=== PATIENT | female | born 1995 | race African-American/Black ===

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

== ENCOUNTER 2017-01-29 09:31 | Inpatient (IN) | payer OTHER ==
[2017-01-29] VITALS (28 sets, daily range): BP systolic 96–146; BP diastolic 48–87
[~2017-01-29] VITALS: Ht 170.2 cm; Wt 66.0 kg
[~2017-01-29 09:31] MED LIST: PREN1TAB11 PO
[2017-01-29] MEDS ORDERED: LR 1,000 ML IV SCH (10:58)
[2017-01-29] MEDS ORDERED: LACTATED RINGER'S 1000 ML IV STA (10:58)
--- NOTE | 2017-01-29 11:52 | HPE ---
DATE OF ADMISSION: 01/29/2017 HISTORY: 21-year-old, 1, para 0, last menstrual period (LMP) 04/25/2016, estimated date of confinement (EDC) 01/30/2017, at 39 and 6, with history of contractions, no loss of fluid or vaginal bleeding. RISK FACTORS: She is a teen and she is Rh negative. LABS: O negative, HIV negative, hepatitis negative, RPR negative, rubella immune. Varicella immune. Urine negative. Gonorrhea and chlamydia negative. 1-hour glucose 117. GBS is negative. On examination, she is distressed with the contractions, 4 minutes apart, moderate intensity, 30 seconds. Pelvic examination: 100% effaced, posterior, 2-3, soft, bulging membranes, -3 station, OT. Category 1 strip. Blood pressure 119/79, respirations 18, pulse 97, temperature is 98.6. Urine 1.015, pH 6, 2+ ketones, 3+ blood. Plan of management is to recheck her now, restart an IV to rid of her ketones and get her back into positive balance. The rest the examination unremarkable. Normal normocephalic, atraumatic. Neck full range of motion. Pupils equal and reactive to light. Chest is clear bilaterally to bases. No wheezes or rhonchi. Distal pulses symmetric. No evidence of DVT, pulmonary embolism (PE), or superficial phlebitis. No costovertebral angle (CVA) tenderness. Uterus, four quadrant bowel sounds, it is appropriate symphysis fundus height and between contractions it relaxes. No rashes, lesions or pruritus. No arthralgia, myalgia. No complaints of cough, wheezes, shortness of breath or dyspnea on exertion. No chest pain. No bleeding. Neuro complete. No incontinency, urgency or frequency. No nausea, vomiting, diarrhea or constipation. No diabetic issues. No [employer]ILRO[employer], past medical or surgical history. Family history is noncontributory. She does not smoke, drink, abuse drugs. There is no domestic violence. In summary, we have a 21-year-old in early labor with dehydration for rehydration and reassessment in one hours' time.
[2017-01-29 12:44] LABS: MEAN CORPUSCULAR HEMOGLOBIN 30.2 pg (27.0-33.0); MEAN CORPUSCULAR HGB CONC 34.6 g/dl (32.0-36.5); MEAN CORPUSCULAR VOLUME 87.2 fl (80.0-96.0); PLATELET COUNT, AUTOMATED 254 10^3/uL (150-450); RED CELL DISTRIBUTION WIDTH 12.6 % (11.5-14.5); WHITE BLOOD COUNT 19.4 10^3/uL (4.0-10.0)
[2017-01-29] MEDS ORDERED: FENTANYL 2MCG/ML ROPIVACAINE 0.2% IN 0.9% NACL 200ML IVBAG As Ordered ONE (12:49)
[2017-01-29] MEDS ORDERED: REFRIGERATOR IV KEYS XX PRN (14:00)
[2017-01-29] MEDS ORDERED: EPIDURAL COMMENT XX SCH (14:00)
[2017-01-29] MEDS ORDERED: ePHEDrine SULFATE 25 MG/5 ML(5MG/ML) SYRINGE IV PRN (14:00)
[2017-01-29] MEDS ORDERED: ONDANSETRON 4MG/2ML VIAL (J2405) IV PRN (14:00)
[2017-01-29] MEDS ORDERED: FENTANYL/ROPIVACAINE/NACL BAG 200 ML EPIDURAL SCH (14:00)
[2017-01-29] MEDS ORDERED: LACTATED RINGER'S 1000 ML IV PRN (14:00)
[2017-01-29] MEDS ORDERED: EPIDURAL/PCA KEYS XX PRN (14:00)
[2017-01-29] MEDS ORDERED: NALOXONE INJ 0.4 MG/1 ML VIAL (J2310) IV PRN (14:00)
[2017-01-29] MEDS ORDERED: diphenhydrAMINE INJ 50MG/ML VIAL (J1200) IV PRN (14:00)
[2017-01-29] MEDS ORDERED: OXYTOCIN 30 UNITS IN 0.9% NaCl 500ML IV BAG (J2590) As Ordered ONE (16:11)
[2017-01-29 18:25] LABS: CORD GAS ABE A -2.1; CORD GAS O2 SAT A 57.4 %; CORD GAS PCO2 A 40.7 mmHg; CORD GAS PH A 7.37 UNITS; CORD GAS PO2 A 23.9 mmHg; CORD GAS SBC A 21.7 MEQ/L; CORD GAS TCO2 A 24.2 MEQ/L
[2017-01-29 18:27] LABS: CORD GAS ABE V -3.2; CORD GAS HCO3 V 19.8 MEQ/L; CORD GAS O2 SAT V 68.1 %; CORD GAS PCO2 V 30.5 mmHg; CORD GAS PH V 7.43 UNITS; CORD GAS PO2 V 44.1 mmHg; CORD GAS SBC V 21.1 MEQ/L; CORD GAS TCO2 V 20.7 MEQ/L
[2017-01-29] MEDS ORDERED: OXYTOCIN DRIP 30 UNITS in APPROPRIATE DILUENT 1 EA IV SCH (18:32)
[2017-01-29] MEDS: OXYTOCIN DRIP 30 UNITS in APPROPRIATE DILUENT 1 EA IV SCH ×2 (18:45→22:45)
[2017-01-29] MEDS ORDERED: ACETAMINOPHEN 500 MG TAB PO PRN (18:45)
[2017-01-29] MEDS ORDERED: ANUSOL HC CREAM 30GM TOP PRN (18:45)
[2017-01-29] MEDS ORDERED: METHYLERGONOVINE MALEATE 0.2 MG TAB PO PRN (18:45)
[2017-01-29] MEDS ORDERED: RHOGAM 300 MCG (1500 IU) INJ (J2790) IM SCH (18:45)
[2017-01-29] MEDS ORDERED: MEASLES,MUMPS,RUBELLA VACCINE INJ (MMR-II) (90707) SC SCH (18:45)
[2017-01-29] MEDS ORDERED: DOCUSATE SODIUM 100 MG CAP PO PRN (18:45)
[2017-01-29] MEDS ORDERED: DIBUCAINE 1% OINTMENT 30GM TOP PRN (18:45)
[2017-01-29] MEDS ORDERED: MOM 30ML SUSPENSION UDC PO PRN (18:45)
[2017-01-29] MEDS ORDERED: OXYTOCIN INJ 10 UNITS/ML VIAL (J2590) IV ONE (18:45)
--- NOTE | 2017-01-29 18:48 | IPN ---
DATE: 01/29/2017 This lady requested circumcision of her male . After discussing risks and benefits of circumcision, the medical and nonmedical indications, penile block and aftercare and complications, expressed understanding penile block, aftercare, complications, signed and witnessed consent form. We await the medical clearance by the bufferer.
[2017-01-29] MEDS ORDERED: OXYTOCIN INJ 10 UNITS/ML VIAL (J2590) As Ordered ONE (19:32)
--- NOTE | 2017-01-29 20:50 | DN ---
DATE: 01/29/2017 This lady, a 3, was admitted in spontaneous labor, required an epidural, had an AROM draining clear liquor at full dilatation over intact perineum, delivered a live male weighing 3650 grams, 8 pounds 1 ounce, scores of 8 and 9 at 1 and 5 minutes, respectively, terminal meconium was noted. She had a small first-degree blood vessel tear which was oversewn with a 2-0 J339. Weight was 3650 grams. The patient had arterial and venous pH performed. The arterial pH was 7.37, base excess -2.1, venous pH 7.43, base excess -3.2. On examination after repair of the blood vessel on the right side of the vagina, the perineum appeared to be intact. Sphincter was tight. Hemorrhoids are noted. Anteroposterior lateral moore were intact. Uterus contracted well down on Pitocin. The patient and baby tolerating procedure well.
[2017-01-29] MEDS: IBUPROFEN 800 MG TAB PO PRN (22:47)
[2017-01-30] MEDS: OXYTOCIN DRIP 30 UNITS in APPROPRIATE DILUENT 1 EA IV SCH ×6 (02:45→21:47)
[2017-01-30 06:00] VITALS: BP 98/56
[2017-01-30 07:12] LABS: MEAN CORPUSCULAR HEMOGLOBIN 30.4 pg (27.0-33.0); MEAN CORPUSCULAR HGB CONC 34.6 g/dl (32.0-36.5); MEAN CORPUSCULAR VOLUME 87.9 fl (80.0-96.0); PLATELET COUNT, AUTOMATED 168 10^3/uL (150-450); RED CELL DISTRIBUTION WIDTH 12.5 % (11.5-14.5); WHITE BLOOD COUNT 18.5 10^3/uL (4.0-10.0)
--- NOTE | 2017-01-30 08:54 | IPN ---
DATE: 01/30/2017 This lady came in labor spontaneously at 39 weeks of gestation and had a spontaneous vaginal delivery live male weighing 8 pounds 1 ounce, 3650 grams, of 8 and 9 at one and five minutes respectfully, had meconium Liqua post delivery with terminal meconium. Arterial pH 7.37, base excess -2.1, venous pH 7.4, base excess -3.2. We discussed phlebitis, cystitis, mastitis, endometritis and cellulitis, diet, exercise pain management, perineal, breast and wound care. The patient is planning on control discussion at the 6-week checkup. The rest examination is unremarkable. She is normocephalic, atraumatic. Neck: Full range of motions. Pupils equally reactive to light. Distal pulses symmetric. No evidence of deep venous thrombosis (DVT), pulmonary embolus (PE) or superficial phlebitis. Chest is clear bilaterally bases. No wheezes or rhonchi. No CVA tenderness. Uterus 2 below. Lochia is moderate. Perineum is healing. No rashes, lesions or pruritus. No arthralgia or myalgia. No complaints of cough, wheezes, shortness of breath or dyspnea on exertion. No chest pain. No bleeding. Neuro complete. No incontinence, urgency or frequency. No nausea, vomiting, diarrhea or constipation. No diabetic issues. Past medical history unremarkable. Family history noncontributory. She does not smoke, drink abuse drugs. She is to a soldier. There is no domestic violence. Her admitting hemoglobin was 11.8, hematocrit 34.1 and platelets 254. Her day #1 hemoglobin 8.8, hematocrit 25.4, platelets are 168. Her vital signs today her blood pressure is 98/56, respirations 18, pulse 75, temperature is 98.6. She is not symptomatic with her low hemoglobin or low blood pressure. The patient is planning on discharge for tomorrow.
[2017-01-30] MEDS ORDERED: PRENATAL VITAMINS CHEWABLE TABLET PO SCH (09:00)
[2017-01-30] MEDS: IBUPROFEN 800 MG TAB PO PRN ×3 (09:18→21:48)
[2017-01-30 18:13] VITALS: BP 90/55
[2017-01-31] MEDS: OXYTOCIN DRIP 30 UNITS in APPROPRIATE DILUENT 1 EA IV SCH (02:45)
[2017-01-31 06:00] VITALS: BP 98/54
[2017-01-31] MEDS: IBUPROFEN 800 MG TAB PO PRN (07:53)
[2017-01-31] MEDS ORDERED: ACET50TA PO (12:34)
[2017-01-31] MEDS ORDERED: COLA100C5 PO (12:34)
[2017-01-31] MEDS ORDERED: IBUP-1114 PO (12:34)
== END 2017-01-31 13:15 | disposition home or self-care (01) | DRG 775 ==
LOC: M LDO 09:31 → M LDI 12:34 → M OBS 20:58
PROVIDERS: ADMIT Obstetrics & Gynecology; ATTEND Obstetrics & Gynecology
PROC: 10E0XZZ Delivery of Products of Conception, External Approach (ICD-10-PCS; principal; 2017-01-29)
PROC: 0HQ9XZZ Repair Perineum Skin, External Approach (ICD-10-PCS; 2017-01-29)
PROC: 10907ZC Drainage of Amniotic Fluid, Therapeutic from Products of Conception, Via Natural or Artificial Opening (ICD-10-PCS; 2017-01-29)
DX: O70.0 First degree perineal laceration during delivery (principal); Z37.0 Single live birth; Z3A.39 39 weeks gestation of pregnancy

== ENCOUNTER 2017-12-16 23:01 | Emergency (ER) | payer OTHER ==
[2017-12-17 01:33] LABS: CHLAMYDIA DNA AMPLIFICATION POSITIVE (NEGATIVE); GC DNA AMPLIFICATION NEGATIVE (NEGATIVE)
[2017-12-17 01:40] LABS: BASO % 0.4 % (0.0-1.0); EOS # 0.2 10^3/uL (0.0-0.50); EOS % 2.4 % (0.0-3.0); HEMATOCRIT 36.6 % (36.0-47.0); HEMOGLOBIN 12.1 g/dl (12.0-15.5); IMMATURE GRANULOCYTE % 0.2 % (0-3.0); LYMPH # 2.5 10^3/uL (1.5-6.5); LYMPH % 26.7 % (24.0-44.0); MEAN CORPUSCULAR HEMOGLOBIN 28.3 pg (27.0-33.0); MEAN CORPUSCULAR HGB CONC 33.1 g/dl (32.0-36.5); MEAN CORPUSCULAR VOLUME 85.5 fl (80.0-96.0); MONO # 0.7 10^3/uL (0.0-0.8); MONO % 7.1 % (0.0-5.0); NEUTROPHILS # 5.8 10^3/uL (1.8-7.7); NEUTROPHILS % 63.2 % (36.0-66.0); PLATELET COUNT, AUTOMATED 245 10^3/uL (150-450); RED BLOOD COUNT 4.28 10^6/uL (4.00-5.40); RED CELL DISTRIBUTION WIDTH 13.2 % (11.5-14.5); WHITE BLOOD COUNT 9.2 10^3/uL (4.0-10.0)
[2017-12-17 01:55] LABS: CONTROL LINE HCG INT CTR LINE PRESENT; HCG, SERUM QUALITATIVE NEGATIVE (NEGATIVE)
[2017-12-17 02:02] LABS: ALBUMIN 3.3 GM/DL (3.2-5.2); ALBUMIN/GLOBULIN RATIO 0.92 (1.00-1.93); ALKALINE PHOSPHATASE 88 U/L (45-117); ALT/SGPT 15 U/L (12-78); ANION GAP 7 MEQ/L (8-16); AST/SGOT 10 U/L (7-37); BILIRUBIN,DIRECT < 0.1 MG/DL (0.0-0.2); BILIRUBIN,TOTAL 0.2 MG/DL (0.2-1.0); BLOOD UREA NITROGEN 10 MG/DL (7-18); CALCIUM LEVEL 8.4 MG/DL (8.5-10.1); CARBON DIOXIDE LEVEL 28 MEQ/L (21-32); CHLORIDE LEVEL 110 MEQ/L (98-107); CREATININE FOR GFR 0.71 MG/DL (0.55-1.30); GLUCOSE, FASTING 89 MG/DL (70-100); LIPASE 157 U/L (73-393); POTASSIUM SERUM 3.9 MEQ/L (3.5-5.1); SODIUM LEVEL 145 MEQ/L (136-145); TOTAL PROTEIN 6.9 GM/DL (6.4-8.2)
[2017-12-17] MEDS ORDERED: LIDOCAINE 1% MDV 20ML VIAL As Ordered (02:38)
[2017-12-17] MEDS: AZITHROMYCIN 250 MG TAB PO (02:40)
[2017-12-17] MEDS: cefTRIAXone SOD 250 MG VIAL (J0696) IM (02:40)
== END 2017-12-17 03:14 | disposition home or self-care (01) ==
LOC: M ED 23:01
DX: A74.9 Chlamydial infection, unspecified (principal)
CPT/HCPCS: J0696